=== PATIENT | female | born 1940 | race Caucasian/White ===

== ENCOUNTER 2020-10-06 15:51 | Emergency (ER) | payer OTHER ==
[~2020-10-06 15:51] MED LIST: ASPIR 8181 MG PO; ELIQUIS2.5 MG PO; FERROUS SULFAT325 M2 PO; KEPPRA250 MG PO; LIORESAL TAB 1010 MG PO; MELATONIN10 M2 PO; NORCO 10-325 T1 EACH PO; PROTONIX40 MG PO; SIMVASTATIN20 MG PO; SINGULAIR10 MG PO; TOPROL XL25 MG PO; TRAZODONE HCL50 MG PO
[2020-10-06 17:46] LABS: HEMOGLOBIN 12.9 gm/dl (12.3-15.3); RED BLOOD COUNT 4.16 M/UL (4.00-5.10); WHITE BLOOD COUNT 17.1 K/UL (4.5-11.0)
== END 2020-10-06 20:59 | disposition home or self-care (01) ==
LOC: ER1 15:51
PROVIDERS: Family Medicine
DX: S16.1XXA Strain of muscle, fascia and tendon at neck level, initial encounter (principal); V47.5XXA Car driver injured in collision with fixed or stationary object in traffic accident, initial encounter; Y92.410 Unspecified street and highway as the place of occurrence of the external cause
CPT/HCPCS: 70450; 72125; 80053; 81001; 85025; 93005; 99284

== ENCOUNTER → 2021-09-22 | Outpatient (CLI) | payer MEDICARE | LOC: HEART 5 10:11 | DX: R00.0 Tachycardia, unspecified (principal) ==

== ENCOUNTER 2021-10-24 05:19 | Inpatient (IN) | payer MEDICARE ==
[~2021-10-24] VITALS: Ht 172.7 cm; Wt 81.6 kg
[~2021-10-24 05:19] MED LIST changes: -LIORESAL TAB 1010 MG PO
[2021-10-24 06:17] LABS: HEMOGLOBIN 12.7 gm/dl (12.3-15.3); RED BLOOD COUNT 3.96 M/UL (4.00-5.10); WHITE BLOOD COUNT 7.9 K/UL (4.5-11.0)
[2021-10-24 07:01] LABS: BUN/CREATININE RATIO 17 (0-10)
[2021-10-24] MEDS ORDERED: VISTARIL25 MG PO (10:38)
[2021-10-24] MEDS ORDERED: CLARITIN10 MG PO (10:39)
[2021-10-24] MEDS ORDERED: VOLTAREN ARTHRI20 GM TOP (10:42)
[2021-10-24] MEDS ORDERED: ZOLMITRIPTAN ODT5 MG PO (10:43)
[2021-10-24] MEDS ORDERED: CALCIUM500 MG PO (10:44)
[2021-10-24] MEDS ORDERED: VITAMIN D 40400 UNIT PO (10:45)
[2021-10-24] MEDS ORDERED: VITAMIN B-121000 MCG PO (10:46)
[2021-10-24] MEDS ORDERED: VITAMIN E400 UNI1 PO (10:46)
[2021-10-24] MEDS ORDERED: FEVERFEW PO (10:48)
[2021-10-24] MEDS ORDERED: LIORESAL TAB 1010 MG PO (11:30)
[2021-10-25 04:04] LABS: HEMOGLOBIN 11.5 gm/dl (12.3-15.3); RED BLOOD COUNT 3.62 M/UL (4.00-5.10)
[2021-10-25 04:44] LABS: ACINETOBACTER BAUMANNII Not Detected (Negative); CANDIDA ALBICANS Not Detected (Negative); CANDIDA KRUSEI Not Detected (Negative); CANDIDA TROPICALIS Not Detected (Negative); ESCHERICHIA COLI Not Detected (Negative); HAEMOPHILUS INFLUENZAE Not Detected (Negative); KLEBSIELLA OXYTOCA Not Detected (Negative); KLEBSIELLA PNEUMONIAE Not Detected (Negative); KPC-CARBAPENEM-RESISTANCE GENE Not Detected (Negative); PROTEUS Not Detected (Negative); PSEUDOMONAS AERUGINOSA Not Detected (Negative); SERRATIA MARCESANS Not Detected (Negative); STAPHYLOCOCCUS Not Detected (Negative); STAPHYLOCOCCUS AUREUS Not Detected (Negative); STREP AGALACTIAE (GROUP B) Not Detected (Negative); STREP PYOGENES (GROUP A) Not Detected (Negative); STREPTOCOCCUS Not Detected (Negative); mecA (METHICILLIN RESIST GENE Not Detected (Negative); vanA/B (VANCOMYCIN RESIST GENE Not Detected (Negative)
[2021-10-25 04:47] LABS: ENTEROCOCCUS DETECTED (Negative)
[2021-10-27 02:59] LABS: HEMOGLOBIN 12.5 gm/dl (12.3-15.3); WHITE BLOOD COUNT 9.2 K/UL (4.5-11.0)
[2021-10-27 03:00] LABS: RED BLOOD COUNT 3.99 M/UL (4.00-5.10)
== END 2021-10-27 14:00 | disposition home or self-care (01) | DRG 312 ==
LOC: ER1 05:19 → CDU 10:18 → PROG CARE 13:16
PROVIDERS: Family Medicine; Physician Assistant; Physician Assistant Medical; ADMIT Internal Medicine Infectious Disease
PROC: B24BZZZ Ultrasonography of Heart with Aorta (ICD-10-PCS; principal; 2021-10-25)
DX: R55 Syncope and collapse (principal); N17.9 Acute kidney failure, unspecified; J98.11 Atelectasis; Z20.822 Contact with and (suspected) exposure to COVID-19; I12.9 Hypertensive chronic kidney disease with stage 1 through stage 4 chronic kidney disease, or unspecified chronic kidney disease; N18.30 Chronic kidney disease, stage 3 unspecified; I27.20 Pulmonary hypertension, unspecified; K21.9 Gastro-esophageal reflux disease without esophagitis; E78.5 Hyperlipidemia, unspecified; E03.9 Hypothyroidism, unspecified; Z96.652 Presence of left artificial knee joint; Z90.710 Acquired absence of both cervix and uterus; Z90.49 Acquired absence of other specified parts of digestive tract; Z88.8 Allergy status to other drugs, medicaments and biological substances; Z83.3 Family history of diabetes mellitus; Z79.82 Long term (current) use of aspirin; Z79.899 Other long term (current) drug therapy
CPT/HCPCS: ECHO; 36415; 71045; 72100; 80048; 80053; 80202; 81001; 82550; 82553; 82962; 83605; 83735; 83874; 83880; 84443; 84484; 85025; 85027; 86140; 87040; 87077; 87086; 87150; 87186; 93005; 93306; 96374; 96375; 97161; 99285; G0378; J0456; J0696; J3370; J7030; J7070; U0002

== ENCOUNTER → 2022-05-31 | Outpatient (CLI) | payer MEDICARE ==
[~2022-05-31] MED LIST changes: +CALCIUM500 MG PO; +CLARITIN10 MG PO; +FEVERFEW PO; +LIORESAL TAB 1010 MG PO; +VISTARIL25 MG PO; +VITAMIN B-121000 MCG PO; +VITAMIN D 40400 UNIT PO; +VITAMIN E400 UNI1 PO; +VOLTAREN ARTHRI20 GM TOP; +ZOLMITRIPTAN ODT5 MG PO
== END ==
LOC: EXRD 12:50
DX: N18.9 Chronic kidney disease, unspecified (principal)
CPT/HCPCS: 76775